=== PATIENT | female | born 1975 | race Caucasian/White ===

== ENCOUNTER 2016-03-29 12:14 | Day surgery (SDC) | payer OTHER ==
[~2016-03-29 12:14] MED LIST: LIDOCAINE W/ SODIUM BICARB 0.5 ML SYR ONE; Lactated Ringers 1,000 ML PRIMARY IV ONE; MIDAZOLAM 5 MG/1 ML ONE; ceFAZolin Inj 2gm (Premix) 50 ML IV ONE; fentaNYL Inj 250 MCG/5 ML VIAL ONE
[2016-03-29] MEDS ORDERED: DEXAMETHASONE PF 10 MG/1 ML VIAL ONE (12:16)
[2016-03-29] MEDS ORDERED: MEPIVACAINE HCL/PF 20 MG/1 ML IV ONE (12:16)
[2016-03-29] MEDS ORDERED: LIDOCAINE 2%/ EPI 1:200,000 - 20 ML VIAL ONE (12:16)
--- NOTE | 2016-03-29 13:53 | CRNA.PROCE ---
Nerve Block Documentation - - Type of Nerve Block Used: Right Axillary Block (Primary anesthetic for right Index Finger tip amputuation.) Position for Nerve Block: Supine Moniters Used During Block: EKG, SPO2, NIBP Oxygen Sumpplented: Yes Sedation Used - Enter Amount in Comment Field: Midazolam (mg): Yes (3 mg), Fentanyl (mcg): Yes (500 mcgs) Skin Prep Used: ChloroPrep (Twice) Draped: No Technique: Nerve Stimulator Nerve Block Needle Used: [employer] 50 mm Stimulation Hz: 1 Stimulation Staring mA: 1.6 Stimulation Ending mA: 0.6 Local Anesthetic - Enter Amt in Comment Field: 2 % Xylocaine with Epinephrine 1: 200,000 (mL): Yes (20 ml in 3 ml incremetnrs), 2 % Mepivacaine (mL): Yes (20 ml in 3 ml incremetns) Additives to Nerve Blocks: Dexamethasone (mL): Yes (10 mg)
[2016-03-29] MEDS ORDERED: Povidone-Iodine Ointment 28.35 gm ointment TOPICAL ONE (15:00)
[2016-03-29 15:16] VITALS: RESP 14
[2016-03-29] MEDS ORDERED: ONDANSETRON 4 MG/2 ML VIAL IVP PRN (15:26)
[2016-03-29] MEDS ORDERED: oxyCODONE/APAP 7.5/325 Tab 1 TAB TAB PO PRN (15:26)
[2016-03-29] MEDS ORDERED: NORMAL SALINE 10 ML SYRINGE FLUSH IVP PRN (15:26)
[2016-03-29 16:22] VITALS: TEMP 98.3
== END 2016-03-29 16:18 | disposition home or self-care (01) ==
LOC: SDSC 12:14
PROVIDERS: ATTEND Orthopaedic Surgery
DX: T87.89 Other complications of amputation stump (principal)
CPT/HCPCS: 26951; J0690; J2704; J3010; J0670; J1100; J2250; J7120